=== PATIENT | female | born 1955 | race Asian ===

== ENCOUNTER 2018-02-16 15:32 | Emergency (ER) | payer BC ==
--- NOTE | 2018-02-16 16:42 | EDM.PDOC ---
ED HPI GENERAL MEDICAL PROBLEM - General Chief Complaint: Cardiovascular Problem Stated Complaint: SOB Time Seen by Provider: 02/16/18 15:45 Source of Information: Reports: Patient, Provider History Limitations: Reports: No Limitations - History of Present Illness INITIAL COMMENTS - FREE TEXT/NARRATIVE: The patient presents from the [facility] with shortness of breath. She quit smoking 2 days ago and she has been short of breath. She denies chest pain. She was evaluated at the clinic at [place] by Diana Samayoa. She did a CXR and EKG. Her EKG showed some nonspecific T waves in the anterolateral leads. She sent her over for more of a work up. She has no fever, chills, cough, abdominal pain, nausea or vomiting. The patient still denies any chest pain. She has no history of heart problems. She has no swelling or pain in her legs. Onset: Gradual Duration: Day(s): (2) Severity: Moderate Improves with: Reports: None Worsens with: Reports: None Associated Symptoms: Reports: Shortness of Breath. Denies: Chest Pain, Cough, Fever/Chills, Nausea/Vomiting - Related Data Allergies Allergy/AdvReac Type Severity Reaction Status Date / Time nabumetone Allergy Rash Verified 02/16/18 15:41 morphine AdvReac Tachycardia Verified 02/16/18 15:41 Home Meds: Home Meds Tofacitinib Citrate [Xeljanz] 11 mg PO DAILY 02/16/18 [History] ED ROS GENERAL - Review of Systems Review Of Systems: See Below Constitutional: Reports: No Symptoms HEENT: Reports: No Symptoms Respiratory: Reports: Shortness of Breath. Denies: Cough Cardiovascular: Reports: No Symptoms Endocrine: Reports: No Symptoms GI/Abdominal: Reports: No Symptoms : Reports: No Symptoms Musculoskeletal: Reports: No Symptoms ED EXAM, GENERAL - Physical Exam Exam: See Below Exam Limited By: No Limitations General Appearance: Alert, No Apparent Distress Ears: Normal External Exam Nose: Normal Inspection Head: Atraumatic, Normocephalic Neck: Normal Inspection Respiratory/Chest: No Respiratory Distress, Lungs Clear, Normal Breath Sounds Cardiovascular: Regular Rate, Rhythm, No Edema, No Murmur GI/Abdominal: Soft, Non-Tender, No Organomegaly, No Mass Back Exam: Normal Inspection Extremities: Normal Inspection Neurological: Alert, Oriented, No Motor/Sensory Deficits EKG INTERPRETATION EKG Date: 02/16/18 Time: 15:55 Rhythm: Other (Sinus tachycardia) Rate (Beats/Min): 58 [place]: Normal P-Wave: Present QRS: Normal ST-T: Other (Nonspecific T wave changes anterolateral leads) QT: Normal Course - Vital Signs Last Recorded V/S: Last Vital Signs Temp 97.8 F 02/16/18 15:42 Pulse 59 L 02/16/18 15:42 Resp 16 02/16/18 15:42 BP 127/70 02/16/18 15:42 Pulse Ox 100 02/16/18 15:42 - Orders/Labs/Meds Orders: Active Orders 24 hr Category Date Time Status Cardiac Monitoring [RC] . DIRECTED Care 02/16/18 16:04 Active EKG Documentation Completion [RC] STAT Care 02/16/18 16:05 Active Holter Monitor 48 Hours [RC] .PRN Care 02/16/18 17:22 Ordered Labs: Laboratory Tests 02/16/18 02/16/18 02/16/18 Range/Units 16:30 16:30 16:30 WBC 6.12 (3.98-10.04) K/mm3 RBC 5.95 H (3.98-5.22) M/mm3 Hgb 12.4 (11.2-15.7) gm/L Hct 38.6 (34.1-44.9) % MCV 64.9 L (79.4-94.8) fl MCH 20.8 L (25.6-32.2) pg MCHC 32.1 L (32.2-35.5) g/dl RDW Std Deviation 41.3 (36.4-46.3) fL Plt Count 207 (182-369) K/mm3 MPV 10.4 (9.4-12.3) fl Neut % (Auto) 63.8 (34.0-71.1) % Lymph % (Auto) 26.0 (19.3-51.7) % [place] % (Auto) 9.0 (4.7-12.5) % Eos % (Auto) 0.5 L (0.7-5.8) Baso % (Auto) 0.5 (0.1-1.2) % Neut # (Auto) 3.91 (1.56-6.13) K/mm3 Lymph # (Auto) 1.59 (1.18-3.74) K/mm3 [place] # (Auto) 0.55 H (0.24-0.36) K/mm3 Eos # (Auto) 0.03 L (0.04-0.36) K/mm3 Baso # (Auto) 0.03 (0.01-0.08) K/mm3 Manual Slide Review Abnormal smear D-Dimer, Quantitative 0.30 (0.19-0.50) mg/L Sodium 141 (136-145) mEq/L Potassium 3.9 (3.5-5.1) mEq/L Chloride 106 (98-107) mEq/L Carbon Dioxide 26 (21-32) mEq/L Anion Gap 12.9 (5-15) BUN 21 H (7-18) mg/dL Creatinine 1.3 H (0.55-1.02) mg/dL Est Cr Clr Drug Dosing 34.29 mL/min Estimated GFR (MDRD) 42 (>60) mL/min BUN/Creatinine Ratio 16.2 (14-18) Glucose 104 (80-115) mg/dL Calcium 8.6 (8.5-10.1) mg/dL Total Bilirubin 0.5 (0.2-1.0) mg/dL AST 15 (15-37) U/L ALT 27 (14-59) U/L Alkaline Phosphatase 53 (46-116) U/L Troponin I < 0.017 (0.00-0.056) ng/mL Total Protein 7.6 (6.4-8.2) g/dl Albumin 4.1 (3.4-5.0) g/dl Globulin 3.5 gm/dL Albumin/Globulin Ratio 1.2 (1-2) - Re-Assessments/Exams Free Text/Narrative Re-Assessment/Exam: 02/16/18 16:44 I ordered a CXR, EKG, and labs. His EKG shows a sinus bradycardia with some nonspecific T wave abnormalities in the anterolateral leads. 02/16/18 17:23 Her CXR looks good. Her CBC looks good. Her creatinine was elevated at 1.3. Her D-dimer was negative. Her troponin was negative. She says for a few years she has been having some palpitations. I will get her on a holter monitor and have her follow up with her doctor. Departure - Departure Time of Disposition: 17:25 Disposition: Home, Self-Care 01 Condition: Good Clinical Impression: Shortness of breath Referrals: Claudine Manriquez DO [Primary Care Provider] - 1 Week Forms: ED Department Discharge Additional Instructions: Drink more water. Your labs showed you were a little dry. Please return if you are worse. Follow up with your doctor in 1 week. - My Orders Last 24 Hours: My Active Orders 02/16/18 16:04 Cardiac Monitoring [RC] . DIRECTED 02/16/18 16:05 EKG Documentation Completion [RC] STAT 02/16/18 17:22 Holter Monitor 48 Hours [RC] .PRN - Assessment/Plan Last 24 Hours: My Active Orders 02/16/18 16:04 Cardiac Monitoring [RC] . DIRECTED 02/16/18 16:05 EKG Documentation Completion [RC] STAT 02/16/18 17:22 Holter Monitor 48 Hours [RC] .PRN
== END 2018-02-16 18:25 | disposition home or self-care (01) ==
LOC: JD.ED 15:32
DX: R06.02 Shortness of breath (principal); Z88.5 Allergy status to narcotic agent; Z88.8 Allergy status to other drugs, medicaments and biological substances
CPT/HCPCS: 36415; 80053; 84484; 85025; 85379; 93005; 93225; 93226; 99285-25